=== PATIENT | female | born 1950 | race African-American/Black ===

== ENCOUNTER 2017-06-17 10:26 | Outpatient (RCR) | payer MEDICARE, MEDICAID | END 2017-06-18 | disposition home or self-care (01) | LOC: PTY 10:26 | DX: M25.569 Pain in unspecified knee (principal); I10 Essential (primary) hypertension | CPT/HCPCS: 97110; 97140; 97162; G0283; G8978; G8979 ==

== ENCOUNTER 2017-07-16 13:57 | Outpatient (RCR) | payer MEDICARE, MEDICAID | END 2017-07-18 | disposition home or self-care (01) | LOC: PTY 13:57 | DX: M47.9 Spondylosis, unspecified (principal); M17.10 Unilateral primary osteoarthritis, unspecified knee; I10 Essential (primary) hypertension | CPT/HCPCS: 97110; 97140; G0283 ==

== ENCOUNTER 2017-07-28 14:00 | Outpatient (RCR) | payer MEDICARE, MEDICAID | END 2017-08-18 | disposition home or self-care (01) | LOC: PTY 14:00 | DX: M54.5 Low back pain (principal); M47.9 Spondylosis, unspecified; M17.9 Osteoarthritis of knee, unspecified; M25.562 Pain in left knee; M25.561 Pain in right knee; I10 Essential (primary) hypertension | CPT/HCPCS: 97110; 97140; G0283 ==

== ENCOUNTER 2018-11-03 12:48 | Outpatient (CLI) | payer MEDICARE, MEDICAID | END 2018-11-03 14:48 | disposition home or self-care (01) | LOC: VAS 12:48 | DX: M25.572 Pain in left ankle and joints of left foot (principal); M25.571 Pain in right ankle and joints of right foot; M25.475 Effusion, left foot; M25.474 Effusion, right foot | CPT/HCPCS: 93970 ==